=== PATIENT | male | born 1975 | race Caucasian/White ===

== ENCOUNTER 2020-06-19 11:32 | Emergency (ER) | payer MEDICARE, OTHER ==
--- NOTE | 2020-06-19 12:16 | XR ---
EXAMINATION TYPE: XR chest 2V DATE OF EXAM: 06/19/2020 COMPARISON: NONE TECHNIQUE: PA and lateral views submitted. HISTORY: Cough FINDINGS: The lungs are clear and there is no pneumothorax, pleural effusion, or focal pneumonia. Cardiac dev ice seen with coarsened interstitium. IMPRESSION: 1. Correlate for bronchitis, interstitial pneumonitis or early venous congestion.
[2020-06-19] MEDS ORDERED: MORPHINE SULFATE 4 MG/ML SYRINGE IV STA (14:35)
[2020-06-19] MEDS ORDERED: SODIUM CHLORIDE 0.9% 1,000 ML IV STA (14:35)
--- NOTE | 2020-06-19 14:43 | ED ---
General Adult HPI - General Chief complaint: Chest Pain Stated complaint: Chest pain/N&D/Fevers Time Seen by Provider: 06/19/20 14:01 Source: patient, RN notes reviewed Mode of arrival: ambulatory Limitations: no limitations - History of Present Illness Initial comments: Patient is a 44-year-old male that presents to the emergency department complaining of chest pain with cough. He notes that he has been exposed to Covid was tested last month tested negative. He noted that he was having symptoms beginning on 06/13/2020. He notes that he does have a history of hypertrophic cardiomyopathy and diabetes. He states that he's been having on and off fevers, chills, night sweats. He denied taking any [id number] anti-inflammatories at home for symptomatically control. He stated that he was trying I's course but decided come in today due to continual symptoms. He was in no apparent distress or pain while sitting in bed during the exam and interview. He noted that his cough was dry and nonproductive. Stated that he was in 7 out of 10 pain lying in bed. He denied any shortness of breath headache nausea vomiting diarrhea constipation fever fatigue chills. - Related Data Home Medications Medication Instructions Recorded Confirmed ARIPiprazole [Abilify] 15 mg PO DAILY 06/19/20 06/19/20 Apixaban [Eliquis] 5 mg PO BID 06/19/20 06/19/20 INSULIN LISPRO (HumaLOG) [humaLOG] See Protocol SQ AC-TID 06/19/20 06/19/20 Insulin Glargine [Lantus] 30 unit SQ HS 06/19/20 06/19/20 Nitroglycerin Sl Tabs [Nitrostat] 0.4 mg SUBLINGUAL Q5M PRN 06/19/20 06/19/20 metFORMIN HCL 1,000 mg PO BID 06/19/20 06/19/20 Allergies Allergy/AdvReac Type Severity Reaction Status Date / Time No Known Allergies Allergy Verified 06/19/20 16:11 Review of Systems ROS Statement: Those systems with pertinent positive or pertinent negative responses have been documented in the HPI. ROS Other: All systems not noted in ROS Statement are negative. Past Medical History Past Medical History: Diabetes Mellitus Additional Past Medical History / Comment(s): hypertrophic History of Any Multi-Drug Resistant Organisms: None Reported Past Surgical History: Cholecystectomy, Tonsillectomy Additional Past Surgical History / Comment(s): pacemaker defibrillator, Past Psychological History: Bipolar, PTSD Smoking Status: Current every day smoker Past Alcohol Use History: None Reported Past Drug Use History: None Reported General Exam Limitations: no limitations General appearance: alert, in no apparent distress Head exam: Present: atraumatic, normocephalic, normal inspection Eye exam: Present: normal appearance, PERRL, EOMI. Absent: scleral icterus, conjunctival injection, periorbital swelling ENT exam: Present: normal exam, mucous membranes moist Neck exam: Present: normal inspection. Absent: tenderness, meningismus, lymphadenopathy Respiratory exam: Present: normal lung sounds bilaterally. Absent: respiratory distress, wheezes, rales, rhonchi, stridor Cardiovascular Exam: Present: regular rate, normal rhythm, normal heart sounds. Absent: systolic murmur, diastolic murmur, rubs, gallop, clicks GI/Abdominal exam: Present: soft, normal bowel sounds. Absent: distended, tenderness, guarding, rebound, rigid Extremities exam: Present: normal inspection, full ROM, normal capillary refill. Absent: tenderness, pedal edema, joint swelling, calf tenderness Neurological exam: Present: alert, oriented X3, CN II-XII intact Psychiatric exam: Present: normal affect, normal mood Skin exam: Present: warm, dry, intact, normal color. Absent: rash Course Vital Signs 06/19/20 06/19/20 06/19/20 11:43 15:07 17:03 Temperature 98.4 F 98.4 F 98.6 F Pulse Rate 84 81 75 Respiratory 17 18 18 Rate Blood Pressure 135/88 127/84 131/86 O2 Sat by Pulse 97 96 100 Oximetry EKG Findings - EKG Comments: EKG Findings:: Ventricular rate 79 bpm, MA interval 150 ms, QRS duration 90 ms, QT/QTC 392/449 ms, PRT axes 11/69/101. Sinus rhythm with occasional premature ventricular complex, nonspecific T-wave abnormality, abnormal ECG. Medical Decision Making - Medical Decision Making 44-year-old male complaining of a cough that results in chest pain. Labs, 1 L normal saline, chest x-ray, Covid test, 4 mg of morphine, EKG ordered. Line labs unremarkable. Covid test positive. Patient was informed that he does meet criteria for monoclonal antibody therapy it would like to undergo it. Case discussed with Dr. Marks, patient can discharge home after IV infusion. - Lab Data Result diagrams: 06/19/20 15:04 06/19/20 15:04 Lab Results 06/19/20 06/19/20 06/19/20 Range/Units 11:53 15:04 15:04 WBC 4.4 (3.8-10.6) k/uL RBC 4.79 (4.30-5.90) m/uL Hgb 14.1 (13.0-17.5) gm/dL Hct 40.3 (39.0-53.0) % MCV 84.1 (80.0-100.0) fL MCH 29.4 (25.0-35.0) pg MCHC 34.9 (31.0-37.0) g/dL RDW 12.9 (11.5-15.5) % Plt Count 169 (150-450) k/uL MPV 8.3 Neutrophils % 69 % Lymphocytes % 20 % Monocytes % 7 % Eosinophils % 1 % Basophils % 1 % Neutrophils # 3.1 (1.3-7.7) k/uL Lymphocytes # 0.9 L (1.0-4.8) k/uL Monocytes # 0.3 (0-1.0) k/uL Eosinophils # 0.1 (0-0.7) k/uL Basophils # 0.0 (0-0.2) k/uL PT 9.9 (9.0-12.0) sec INR 0.9 (<1.2) APTT 22.9 (22.0-30.0) sec D-Dimer 0.21 (<0.60) mg/L FEU Sodium (137-145) mmol/L Potassium (3.5-5.1) mmol/L Chloride (98-107) mmol/L Carbon Dioxide (22-30) mmol/L Anion Gap mmol/L BUN (9-20) mg/dL Creatinine (0.66-1.25) mg/dL Est GFR (CKD-EPI)AfAm (>60 ml/min/1.73 sqM) Est GFR (CKD-EPI)NonAf (>60 ml/min/1.73 sqM) Glucose (74-99) mg/dL Calcium (8.4-10.2) mg/dL Magnesium (1.6-2.3) mg/dL Total Bilirubin (0.2-1.3) mg/dL AST (17-59) U/L ALT (4-49) U/L Alkaline Phosphatase (38-126) U/L Troponin I (0.000-0.034) ng/mL Total Protein (6.3-8.2) g/dL Albumin (3.5-5.0) g/dL Coronavirus (PCR) Detected A (Not Detectd) 06/19/20 06/19/20 Range/Units 15:04 15:04 WBC (3.8-10.6) k/uL RBC (4.30-5.90) m/uL Hgb (13.0-17.5) gm/dL Hct (39.0-53.0) % MCV (80.0-100.0) fL MCH (25.0-35.0) pg MCHC (31.0-37.0) g/dL RDW (11.5-15.5) % Plt Count (150-450) k/uL MPV Neutrophils % % Lymphocytes % % Monocytes % % Eosinophils % % Basophils % % Neutrophils # (1.3-7.7) k/uL Lymphocytes # (1.0-4.8) k/uL Monocytes # (0-1.0) k/uL Eosinophils # (0-0.7) k/uL Basophils # (0-0.2) k/uL PT (9.0-12.0) sec INR (<1.2) APTT (22.0-30.0) sec D-Dimer (<0.60) mg/L FEU Sodium 136 L (137-145) mmol/L Potassium 5.4 H (3.5-5.1) mmol/L Chloride 101 (98-107) mmol/L Carbon Dioxide 26 (22-30) mmol/L Anion Gap 9 mmol/L BUN 12 (9-20) mg/dL Creatinine 0.79 (0.66-1.25) mg/dL Est GFR (CKD-EPI)AfAm >90 (>60 ml/min/1.73 sqM) Est GFR (CKD-EPI)NonAf >90 (>60 ml/min/1.73 sqM) Glucose 290 H (74-99) mg/dL Calcium 9.2 (8.4-10.2) mg/dL Magnesium 2.2 (1.6-2.3) mg/dL Total Bilirubin 1.2 (0.2-1.3) mg/dL AST 56 (17-59) U/L ALT 48 (4-49) U/L Alkaline Phosphatase 83 (38-126) U/L Troponin I 0.015 (0.000-0.034) ng/mL Total Protein 7.6 (6.3-8.2) g/dL Albumin 4.6 (3.5-5.0) g/dL Coronavirus (PCR) (Not Detectd) - EKG Data -: EKG Interpreted by Me EKG shows normal: sinus rhythm Rate: normal EKG Comments: Ventricular rate 79 bpm, MA interval 150 ms, QRS duration 90 ms, QT/QTC 392/449 ms, PRT axes 11/69/101 Sinus rhythm with occasional premature ventricular complex, nonspecific T-wave abnormality, abnormal ECG - Radiology Data Radiology results: report reviewed, image reviewed Chest x-ray: The lungs are clear and there is no pneumothorax, pleural effusion or focal pneumonia. Cardiac device in with coarsened interstitium. Disposition Clinical Impression: COVID-19 Disposition: HOME SELF-CARE Condition: Stable Instructions (If sedation given, give patient instructions): Coronavirus Disease 2019 (COVID-19) Additional Instructions: Please return to the Emergency Department if symptoms worsen or any other concerns. Quarantine for 10-14 days from symptom onset. Increase oral fluid intake. Take [id number] anti-inflammatories for fever and muscle aches and pains. Follow-up primary care soon as possible. Is patient prescribed a controlled substance at d/c from ED?: No Referrals: None,Stated [Primary Care Provider] - 1-2 days Time of Disposition: 17:59
[2020-06-19 15:09] VITALS: RESP 18
[2020-06-19 15:41] LABS: Basophils % (A) 1 %; Eosinophils # (A) 0.1 k/uL (0-0.7); Eosinophils % (A) 1 %; HCT 40.3 % (39.0-53.0); HGB 14.1 gm/dL (13.0-17.5); Lymphocytes # (A) 0.9 k/uL (1.0-4.8); Lymphocytes % (A) 20 %; MCH 29.4 pg (25.0-35.0); MCHC 34.9 g/dL (31.0-37.0); MCV 84.1 fL (80.0-100.0); Mean Platelet Volume 8.3; Monocytes # (A) 0.3 k/uL (0-1.0); Monocytes % (A) 7 %; Neutrophils # (A) 3.1 k/uL (1.3-7.7); Neutrophils % (A) 69 %; Platelet Count 169 k/uL (150-450); RBC 4.79 m/uL (4.30-5.90); RDW 12.9 % (11.5-15.5); WBC 4.4 k/uL (3.8-10.6)
[2020-06-19 15:47] LABS: ALT 48 U/L (4-49); AST 56 U/L (17-59); African American GFR (CKD) >90 (>60 ml/min/1.73 sqM); Albumin 4.6 g/dL (3.5-5.0); Alkaline Phosphatase 83 U/L (38-126); Anion Gap 9 mmol/L; Blood Urea Nitrogen 12 mg/dL (9-20); Calcium 9.2 mg/dL (8.4-10.2); Carbon Dioxide 26 mmol/L (22-30); Chloride 101 mmol/L (98-107); Glucose 290 mg/dL (74-99); Magnesium 2.2 mg/dL (1.6-2.3); Non-African American GFR(CKD) >90 (>60 ml/min/1.73 sqM); Sodium 136 mmol/L (137-145); Total Bilirubin 1.2 mg/dL (0.2-1.3); Total Protein 7.6 g/dL (6.3-8.2)
[2020-06-19 15:59] LABS: D-Dimer 0.21 mg/L FEU (<0.60); INR 0.9 (<1.2); Partial Thromboplastin Time 22.9 sec (22.0-30.0); Prothrombin Time 9.9 sec (9.0-12.0)
[2020-06-19 16:02] LABS: Potassium 5.4 mmol/L (3.5-5.1)
[2020-06-19] MEDS ORDERED: MORPHINE SULFATE 4 MG/ML SYRINGE IVP STA (17:15)
[2020-06-19] MEDS ORDERED: BAMLANIVIMAB (EUA) 700 MG, ETESEVIMAB (EUA) 1,400 MG in SODIUM CHLORIDE 0.9% 50 ML IVPB ONE (19:15)
[2020-06-19 20:00] VITALS: BP 124/78; PULSE 80; TEMP 98.2
[2020-06-19] MEDS ORDERED: SODIUM CHLORIDE 0.9% 50 ML IVPB ONE (20:00)
== END 2020-06-19 19:45 | disposition home or self-care (01) ==
LOC: EC 11:32
DX: U07.1 COVID-19 (principal); E11.9 Type 2 diabetes mellitus without complications; F31.9 Bipolar disorder, unspecified; F17.200 Nicotine dependence, unspecified, uncomplicated; Z79.4 Long term (current) use of insulin
CPT/HCPCS: 36415; 93005; 85379; 80053; 83735; 84484; 85025; 85610; 85730; 87635; 71046; 99285; 96374; 96376; 96361 ×3; J2270

== ENCOUNTER 2020-06-21 01:09 | Emergency (ER) | payer OTHER, MEDICARE ==
[2020-06-21] MEDS ORDERED: ONDANSETRON 4 MG/2 ML VIAL IVP STA (02:37)
[2020-06-21] MEDS ORDERED: SODIUM CHLORIDE 0.9% 1,000 ML IV ONE ×3 (02:37→04:29)
[2020-06-21] MEDS ORDERED: IBUPROFEN 600 MG TAB PO STA ×2 (02:37→16:42)
[2020-06-21] MEDS ORDERED: Acetaminophen-Codeine 300-30mg TAB PO STA (02:37)
[2020-06-21 03:36] LABS: ALT 34 U/L (4-49); AST 24 U/L (17-59); African American GFR (CKD) >90 (>60 ml/min/1.73 sqM); Albumin 3.7 g/dL (3.5-5.0); Alkaline Phosphatase 89 U/L (38-126); Anion Gap 10 mmol/L; Blood Urea Nitrogen 14 mg/dL (9-20); Calcium 8.5 mg/dL (8.4-10.2); Carbon Dioxide 22 mmol/L (22-30); Chloride 104 mmol/L (98-107); Glucose 380 mg/dL (74-99); Non-African American GFR(CKD) >90 (>60 ml/min/1.73 sqM); Potassium 3.4 mmol/L (3.5-5.1); Sodium 136 mmol/L (137-145); Total Bilirubin 0.7 mg/dL (0.2-1.3); Total Protein 6.3 g/dL (6.3-8.2)
[2020-06-21 03:40] LABS: Basophils % (A) 1 %; Eosinophils % (A) 1 %; HCT 38.8 % (39.0-53.0); HGB 13.3 gm/dL (13.0-17.5); Lymphocytes # (A) 0.8 k/uL (1.0-4.8); Lymphocytes % (A) 14 %; MCHC 34.4 g/dL (31.0-37.0); MCV 84.2 fL (80.0-100.0); Mean Platelet Volume 8.5; Monocytes # (A) 0.4 k/uL (0-1.0); Monocytes % (A) 7 %; Neutrophils # (A) 4.2 k/uL (1.3-7.7); Neutrophils % (A) 76 %; Platelet Count 164 k/uL (150-450); RBC 4.61 m/uL (4.30-5.90); WBC 5.5 k/uL (3.8-10.6)
[2020-06-21] MEDS ORDERED: INSULIN REGULAR 100 UNIT/ML VIAL SQ STA (04:28)
--- NOTE | 2020-06-21 07:11 | ED ---
Psych HPI - General Source: patient Mode of arrival: ambulatory - History of Present Illness MD Complaint: suicidal ideation, feels depressed Onset/Timin -: days(s) Quality: getting worse Improves With: none Worsens With: none Associated Symptoms: other (Fevers, chills, cough) <Asa Cunningham - Last Filed: 06/21/20 07:10> <Nabil Lopez - Last Filed: 06/21/20 11:12> - General Chief Complaint: Psychiatric Symptoms Stated Complaint: Mental health Time Seen by Provider: 06/21/20 01:50 - Related Data Home Medications Medication Instructions Recorded Confirmed ARIPiprazole [Abilify] 15 mg PO DAILY 06/19/20 06/19/20 Apixaban [Eliquis] 5 mg PO BID 06/19/20 06/19/20 INSULIN LISPRO (HumaLOG) [humaLOG] See Protocol SQ AC-TID 06/19/20 06/19/20 Insulin Glargine [Lantus] 30 unit SQ HS 06/19/20 06/19/20 Nitroglycerin Sl Tabs [Nitrostat] 0.4 mg SUBLINGUAL Q5M PRN 06/19/20 06/19/20 metFORMIN HCL 1,000 mg PO BID 06/19/20 06/19/20 Allergies Allergy/AdvReac Type Severity Reaction Status Date / Time No Known Allergies Allergy Verified 06/21/20 01:32 Review of Systems ROS Other: All systems not noted in ROS Statement are negative. Constitutional: Reports: fever, chills ENT: Reports: congestion Respiratory: Reports: cough. Denies: dyspnea, wheezes Cardiovascular: Denies: chest pain, palpitations Gastrointestinal: Denies: abdominal pain, vomiting, diarrhea Genitourinary: Denies: dysuria, hematuria Musculoskeletal: Denies: back pain Skin: Denies: rash Neurological: Reports: headache. Denies: weakness, numbness <Asa Cunningham - Last Filed: 06/21/20 07:10> ROS Other: All systems not noted in ROS Statement are negative. <Nabil Lopez - Last Filed: 06/21/20 11:12> ROS Statement: Those systems with pertinent positive or pertinent negative responses have been documented in the HPI. Past Medical History Past Medical History: Diabetes Mellitus Additional Past Medical History / Comment(s): hypertrophic History of Any Multi-Drug Resistant Organisms: None Reported Past Surgical History: Cholecystectomy, Tonsillectomy Additional Past Surgical History / Comment(s): pacemaker defibrillator, Past Psychological History: Bipolar, PTSD Smoking Status: Current every day smoker Past Alcohol Use History: None Reported Past Drug Use History: None Reported <Asa Cunningham - Last Filed: 06/21/20 07:10> General Exam Limitations: no limitations General appearance: alert, in no apparent distress Head exam: Present: atraumatic, normocephalic Eye exam: Present: normal appearance. Absent: scleral icterus, conjunctival injection ENT exam: Present: mucous membranes dry Neck exam: Present: normal inspection, full ROM. Absent: meningismus Respiratory exam: Present: normal lung sounds bilaterally. Absent: respiratory distress, wheezes, rales, rhonchi, stridor Cardiovascular Exam: Present: regular rate, normal rhythm, normal heart sounds. Absent: systolic murmur, diastolic murmur, rubs, gallop GI/Abdominal exam: Present: soft. Absent: distended, tenderness, guarding, rebound Extremities exam: Present: normal inspection, normal capillary refill. Absent: pedal edema, calf tenderness Back exam: Present: normal inspection Neurological exam: Present: alert Skin exam: Present: warm, dry, intact, normal color. Absent: rash <Asa Cunningham - Last Filed: 06/21/20 07:10> Course Vital Signs 06/21/20 06/21/20 06/21/20 01:26 03:00 05:30 Temperature 99 F 99.0 F Pulse Rate 104 H 83 Respiratory 18 18 18 Rate Blood Pressure 125/70 117/53 O2 Sat by Pulse 96 94 L Oximetry Medical Decision Making - Lab Data Result diagrams: 06/21/20 03:00 06/21/20 03:00 <Asa Cunningham - Last Filed: 06/21/20 07:10> - Lab Data Result diagrams: 06/21/20 03:00 06/21/20 03:00 <Nabil Lopez - Last Filed: 06/21/20 11:12> - Lab Data Lab Results 06/21/20 06/21/20 Range/Units 03:00 03:00 WBC 5.5 (3.8-10.6) k/uL RBC 4.61 (4.30-5.90) m/uL Hgb 13.3 (13.0-17.5) gm/dL Hct 38.8 L (39.0-53.0) % MCV 84.2 (80.0-100.0) fL MCH 29.0 (25.0-35.0) pg MCHC 34.4 (31.0-37.0) g/dL RDW 13.0 (11.5-15.5) % Plt Count 164 (150-450) k/uL MPV 8.5 Neutrophils % 76 % Lymphocytes % 14 % Monocytes % 7 % Eosinophils % 1 % Basophils % 1 % Neutrophils # 4.2 (1.3-7.7) k/uL Lymphocytes # 0.8 L (1.0-4.8) k/uL Monocytes # 0.4 (0-1.0) k/uL Eosinophils # 0.0 (0-0.7) k/uL Basophils # 0.0 (0-0.2) k/uL Sodium 136 L (137-145) mmol/L Potassium 3.4 L (3.5-5.1) mmol/L Chloride 104 (98-107) mmol/L Carbon Dioxide 22 (22-30) mmol/L Anion Gap 10 mmol/L BUN 14 (9-20) mg/dL Creatinine 0.81 (0.66-1.25) mg/dL Est GFR (CKD-EPI)AfAm >90 (>60 ml/min/1.73 sqM) Est GFR (CKD-EPI)NonAf >90 (>60 ml/min/1.73 sqM) Glucose 380 H (74-99) mg/dL Calcium 8.5 (8.4-10.2) mg/dL Total Bilirubin 0.7 (0.2-1.3) mg/dL AST 24 (17-59) U/L ALT 34 (4-49) U/L Alkaline Phosphatase 89 (38-126) U/L Total Protein 6.3 (6.3-8.2) g/dL Albumin 3.7 (3.5-5.0) g/dL Disposition <Asa Cunningham - Last Filed: 06/21/20 07:10> Time of Disposition: 11:12 <Nabil Lopez - Last Filed: 06/21/20 11:12> Clinical Impression: Depression, Suicidal ideation Disposition: TRANSFER TO PSYCH HOSP/UNIT Referrals: None,Stated [Primary Care Provider] - 1-2 days
[2020-06-21] MEDS ORDERED: ACETAMINOPHEN TAB 500 MG TAB PO STA (09:16)
[2020-06-21] MEDS ORDERED: ALBUTEROL HFA INHALER INHALATION STA (09:25)
[2020-06-21] MEDS: INSULIN ASPART (NovoLOG) 100 UNIT/ML VIAL SQ SCH ×4 (12:12→22:16)
[2020-06-21 12:22] LABS: Glucose,Whole Blood 224 mg/dL (75-99)
[2020-06-21 12:42] LABS: Appearance,Urine Clear (Clear); Bilirubin,Urine Negative (Negative); Blood,Urine Negative (Negative); Color,Urine Yellow; Glucose,Urine (UA) 4+ (Negative); Ketones,Urine Trace (Negative); Leukocyte Esterase,Urine Negative (Negative); Nitrite,Urine Negative (Negative); PH, Urine 5.5 (5.0-8.0); Protein,Urine Trace (Negative); Specific Gravity,Urine 1.043 (1.001-1.035); Urobilinogen,Urine <2.0 mg/dL (<2.0)
[2020-06-21 13:10] LABS: Amphetamine Screen,Urine Not Detected (NotDetected); Barbiturate Screen,Urine Not Detected (NotDetected); Benzodiazepines Screen,Urine Detected (NotDetected); Cocaine Screen,Urine Not Detected (NotDetected); Methadone Screen, Urine Not Detected (NotDetected); Opiate Screen,Urine Detected (NotDetected); Oxycodone Screen, Urine Not Detected (NotDetected); Phencyclidine Screen,Urine Not Detected (NotDetected); Tricyclic Antidepressant,Urine Not Detected (NotDetected); Urn Cannabinoid Scrn Not Detected (NotDetected)
[2020-06-21 17:36] LABS: Glucose,Whole Blood 162 mg/dL (75-99)
[2020-06-21 22:09] LABS: Glucose,Whole Blood 258 mg/dL (75-99)
[2020-06-22] MEDS ORDERED: IBUPROFEN 600 MG TAB PO STA (03:19)
[2020-06-22] MEDS ORDERED: LORazepam 1 MG TAB PO STA (03:35)
[2020-06-22 10:39] LABS: Glucose,Whole Blood 223 mg/dL (75-99)
[2020-06-22] MEDS: INSULIN ASPART (NovoLOG) 100 UNIT/ML VIAL SQ SCH ×4 (11:17→23:29)
[2020-06-22] MEDS ORDERED: ACETAMINOPHEN TAB 500 MG TAB PO STA (11:34)
[2020-06-22] MEDS ORDERED: KETOROLAC 15 MG/ML 1 ML VIAL IVP STA (16:56)
[2020-06-22 17:06] LABS: Glucose,Whole Blood 201 mg/dL (75-99)
[2020-06-22 23:24] LABS: Glucose,Whole Blood 306 mg/dL (75-99)
[2020-06-22] MEDS: ACETAMINOPHEN TAB 500 MG TAB PO PRN (23:27)
[2020-06-23 07:26] LABS: Glucose,Whole Blood 200 mg/dL (75-99)
[2020-06-23] MEDS: INSULIN ASPART (NovoLOG) 100 UNIT/ML VIAL SQ SCH ×4 (07:39→21:18)
[2020-06-23] MEDS: ACETAMINOPHEN TAB 500 MG TAB PO PRN ×3 (07:39→22:57)
[2020-06-23] MEDS ORDERED: ALPRAZolam 1 MG TAB PO STA (14:05)
[2020-06-23 14:23] LABS: Glucose,Whole Blood 304 mg/dL (75-99)
[2020-06-23 17:40] LABS: Glucose,Whole Blood 267 mg/dL (75-99)
[2020-06-23 21:20] LABS: Glucose,Whole Blood 258 mg/dL (75-99)
[2020-06-24 07:52] LABS: Glucose,Whole Blood 301 mg/dL (75-99)
[2020-06-24] MEDS: INSULIN ASPART (NovoLOG) 100 UNIT/ML VIAL SQ SCH ×5 (08:18→21:21)
[2020-06-24] MEDS ORDERED: ARIPiprazole 15 MG TAB PO SCH (09:00)
[2020-06-24] MEDS: APIXABAN 5 MG TAB PO SCH ×2 (09:05→21:21)
[2020-06-24 12:16] LABS: Glucose,Whole Blood 253 mg/dL (75-99)
[2020-06-24] MEDS ORDERED: ACETAMINOPHEN TAB 500 MG TAB PO PRN (14:21)
[2020-06-24 17:17] LABS: Glucose,Whole Blood 308 mg/dL (75-99)
[2020-06-24] MEDS ORDERED: LORazepam 1 MG TAB PO STA (19:01)
[2020-06-24 21:05] LABS: Glucose,Whole Blood 360 mg/dL (75-99)
[2020-06-24] MEDS: ARIPiprazole 15 MG TAB PO SCH (21:20)
[2020-06-24] MEDS: INSULIN DETEMIR (LEVEMIR) 100 UNIT/ML SYR SQ SCH (21:21)
[2020-06-25 09:46] LABS: Glucose,Whole Blood 284 mg/dL (75-99)
[2020-06-25] MEDS: APIXABAN 5 MG TAB PO SCH ×2 (09:51→21:15)
[2020-06-25] MEDS: INSULIN ASPART (NovoLOG) 100 UNIT/ML VIAL SQ SCH ×4 (09:51→21:14)
[2020-06-25 14:21] LABS: Glucose,Whole Blood 276 mg/dL (75-99)
--- NOTE | 2020-06-25 15:07 | ED ---
Medical Decision Making - Medical Decision Making The patient did complain of left-sided chest pressure [id number] in severity status intermittently for a long time. 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 No shortness breath no fevers chills nausea vomiting sweats or other symptoms reported at this time. The patient's workup for chest pain was negative thus far. He is still Covid positive, patient is pending transfer. Patient's case will be endorsed to Dr. Phelps at shift change - Lab Data Result diagrams: 06/25/20 14:53 06/25/20 14:53 Lab Results 06/21/20 06/21/20 06/21/20 Range/Units 03:00 03:00 12:11 WBC 5.5 (3.8-10.6) k/uL RBC 4.61 (4.30-5.90) m/uL Hgb 13.3 (13.0-17.5) gm/dL Hct 38.8 L (39.0-53.0) % MCV 84.2 (80.0-100.0) fL MCH 29.0 (25.0-35.0) pg MCHC 34.4 (31.0-37.0) g/dL RDW 13.0 (11.5-15.5) % Plt Count 164 (150-450) k/uL MPV 8.5 Neutrophils % 76 % Neutrophils % (Manual) % Lymphocytes % 14 % Lymphocytes % (Manual) % Monocytes % 7 % Monocytes % (Manual) % Eosinophils % 1 % Basophils % 1 % Neutrophils # 4.2 (1.3-7.7) k/uL Neutrophils # (Manual) (1.3-7.7) k/uL Lymphocytes # 0.8 L (1.0-4.8) k/uL Lymphocytes # (Manual) (1.0-4.8) k/uL Monocytes # 0.4 (0-1.0) k/uL Monocytes # (Manual) (0-1.0) k/uL Eosinophils # 0.0 (0-0.7) k/uL Basophils # 0.0 (0-0.2) k/uL Nucleated RBCs (0-0) /100 WBC Polychromasia Sodium 136 L (137-145) mmol/L Potassium 3.4 L (3.5-5.1) mmol/L Chloride 104 (98-107) mmol/L Carbon Dioxide 22 (22-30) mmol/L Anion Gap 10 mmol/L BUN 14 (9-20) mg/dL Creatinine 0.81 (0.66-1.25) mg/dL Est GFR (CKD-EPI)AfAm >90 (>60 ml/min/1.73 sqM) Est GFR (CKD-EPI)NonAf >90 (>60 ml/min/1.73 sqM) Glucose 380 H (74-99) mg/dL POC Glucose (mg/dL) 224 H (75-99) mg/dL POC Glu [facility] Specialist ID Rohan Ureña Calcium 8.5 (8.4-10.2) mg/dL Magnesium (1.6-2.3) mg/dL Total Bilirubin 0.7 (0.2-1.3) mg/dL AST 24 (17-59) U/L ALT 34 (4-49) U/L Alkaline Phosphatase 89 (38-126) U/L Creatine Kinase (55-170) U/L Troponin I (0.000-0.034) ng/mL Total Protein 6.3 (6.3-8.2) g/dL Albumin 3.7 (3.5-5.0) g/dL Urine Color Urine Appearance (Clear) Urine pH (5.0-8.0) Ur Specific [place] (1.001-1.035) Urine Protein (Negative) Urine Glucose (UA) (Negative) Urine Ketones (Negative) Urine Blood (Negative) Urine Nitrite (Negative) Urine Bilirubin (Negative) Urine Urobilinogen (<2.0) mg/dL Ur Leukocyte Esterase (Negative) Urine Opiates Screen (NotDetected) Ur Oxycodone Screen (NotDetected) Urine Methadone Screen (NotDetected) Ur Propoxyphene Screen (NotDetected) Ur Barbiturates Screen (NotDetected) U Tricyclic Antidepress (NotDetected) Ur Phencyclidine Scrn (NotDetected) Ur Amphetamines Screen (NotDetected) U Methamphetamines Scrn (NotDetected) U Benzodiazepines Scrn (NotDetected) Urine Cocaine Screen (NotDetected) U Marijuana (THC) Screen (NotDetected) Coronavirus (PCR) (Not Detectd) 06/21/20 06/21/20 06/21/20 Range/Units 12:25 12:25 17:13 WBC (3.8-10.6) k/uL RBC (4.30-5.90) m/uL Hgb (13.0-17.5) gm/dL Hct (39.0-53.0) % MCV (80.0-100.0) fL MCH (25.0-35.0) pg MCHC (31.0-37.0) g/dL RDW (11.5-15.5) % Plt Count (150-450) k/uL MPV Neutrophils % % Neutrophils % (Manual) % Lymphocytes % % Lymphocytes % (Manual) % Monocytes % % Monocytes % (Manual) % Eosinophils % % Basophils % % Neutrophils # (1.3-7.7) k/uL Neutrophils # (Manual) (1.3-7.7) k/uL Lymphocytes # (1.0-4.8) k/uL Lymphocytes # (Manual) (1.0-4.8) k/uL Monocytes # (0-1.0) k/uL Monocytes # (Manual) (0-1.0) k/uL Eosinophils # (0-0.7) k/uL Basophils # (0-0.2) k/uL Nucleated RBCs (0-0) /100 WBC Polychromasia Sodium (137-145) mmol/L Potassium (3.5-5.1) mmol/L Chloride (98-107) mmol/L Carbon Dioxide (22-30) mmol/L Anion Gap mmol/L BUN (9-20) mg/dL Creatinine (0.66-1.25) mg/dL Est GFR (CKD-EPI)AfAm (>60 ml/min/1.73 sqM) Est GFR (CKD-EPI)NonAf (>60 ml/min/1.73 sqM) Glucose (74-99) mg/dL POC Glucose (mg/dL) 162 H (75-99) mg/dL POC Glu [facility] N[facility] And Throat Specialist ID Mesha Gonzales Calcium (8.4-10.2) mg/dL Magnesium (1.6-2.3) mg/dL Total Bilirubin (0.2-1.3) mg/dL AST (17-59) U/L ALT (4-49) U/L Alkaline Phosphatase (38-126) U/L Creatine Kinase (55-170) U/L Troponin I (0.000-0.034) ng/mL Total Protein (6.3-8.2) g/dL Albumin (3.5-5.0) g/dL Urine Color Yellow Urine Appearance Clear (Clear) Urine pH 5.5 (5.0-8.0) Ur Specific [place] 1.043 H (1.001-1.035) Urine Protein Trace H (Negative) Urine Glucose (UA) 4+ H (Negative) Urine Ketones Trace H (Negative) Urine Blood Negative (Negative) Urine Nitrite Negative (Negative) Urine Bilirubin Negative (Negative) Urine Urobilinogen <2.0 (<2.0) mg/dL Ur Leukocyte Esterase Negative (Negative) Urine Opiates Screen Detected H (NotDetected) Ur Oxycodone Screen Not Detected (NotDetected) Urine Methadone Screen Not Detected (NotDetected) Ur Propoxyphene Screen Not Detected (NotDetected) Ur Barbiturates Screen Not Detected (NotDetected) U Tricyclic Antidepress Not Detected (NotDetected) Ur Phencyclidine Scrn Not Detected (NotDetected) Ur Amphetamines Screen Not Detected (NotDetected) U Methamphetamines Scrn Not Detected (NotDetected) U Benzodiazepines Scrn Detected H (NotDetected) Urine Cocaine Screen Not Detected (NotDetected) U Marijuana (THC) Screen Not Detected (NotDetected) Coronavirus (PCR) (Not Detectd) 06/21/20 06/22/20 06/22/20 Range/Units 22:08 10:35 17:05 WBC (3.8-10.6) k/uL RBC (4.30-5.90) m/uL Hgb (13.0-17.5) gm/dL Hct (39.0-53.0) % MCV (80.0-100.0) fL MCH (25.0-35.0) pg MCHC (31.0-37.0) g/dL RDW (11.5-15.5) % Plt Count (150-450) k/uL MPV Neutrophils % % Neutrophils % (Manual) % Lymphocytes % % Lymphocytes % (Manual) % Monocytes % % Monocytes % (Manual) % Eosinophils % % Basophils % % Neutrophils # (1.3-7.7) k/uL Neutrophils # (Manual) (1.3-7.7) k/uL Lymphocytes # (1.0-4.8) k/uL Lymphocytes # (Manual) (1.0-4.8) k/uL Monocytes # (0-1.0) k/uL Monocytes # (Manual) (0-1.0) k/uL Eosinophils # (0-0.7) k/uL Basophils # (0-0.2) k/uL Nucleated RBCs (0-0) /100 WBC Polychromasia Sodium (137-145) mmol/L Potassium (3.5-5.1) mmol/L Chloride (98-107) mmol/L Carbon Dioxide (22-30) mmol/L Anion Gap mmol/L BUN (9-20) mg/dL Creatinine (0.66-1.25) mg/dL Est GFR (CKD-EPI)AfAm (>60 ml/min/1.73 sqM) Est GFR (CKD-EPI)NonAf (>60 ml/min/1.73 sqM) Glucose (74-99) mg/dL POC Glucose (mg/dL) 258 H 223 H 201 H (75-99) mg/dL POC Glu [facility] N[facility] Throat Specialist Louann Abrams, Harper Villa Calcium (8.4-10.2) mg/dL Magnesium (1.6-2.3) mg/dL Total Bilirubin (0.2-1.3) mg/dL AST (17-59) U/L ALT (4-49) U/L Alkaline Phosphatase (38-126) U/L Creatine Kinase (55-170) U/L Troponin I (0.000-0.034) ng/mL Total Protein (6.3-8.2) g/dL Albumin (3.5-5.0) g/dL Urine Color Urine Appearance (Clear) Urine pH (5.0-8.0) Ur Specific [place] (1.001-1.035) Urine Protein (Negative) Urine Glucose (UA) (Negative) Urine Ketones (Negative) Urine Blood (Negative) Urine Nitrite (Negative) Urine Bilirubin (Negative) Urine Urobilinogen (<2.0) mg/dL Ur Leukocyte Esterase (Negative) Urine Opiates Screen (NotDetected) Ur Oxycodone Screen (NotDetected) Urine Methadone Screen (NotDetected) Ur Propoxyphene Screen (NotDetected) Ur Barbiturates Screen (NotDetected) U Tricyclic Antidepress (NotDetected) Ur Phencyclidine Scrn (NotDetected) Ur Amphetamines Screen (NotDetected) U Methamphetamines Scrn (NotDetected) U Benzodiazepines Scrn (NotDetected) Urine Cocaine Screen (NotDetected) U Marijuana (THC) Screen (NotDetected) Coronavirus (PCR) (Not Detectd) 06/22/20 06/23/20 06/23/20 Range/Units 23:22 07:24 14:10 WBC (3.8-10.6) k/uL RBC (4.30-5.90) m/uL Hgb (13.0-17.5) gm/dL Hct (39.0-53.0) % MCV (80.0-100.0) fL MCH (25.0-35.0) pg MCHC (31.0-37.0) g/dL RDW (11.5-15.5) % Plt Count (150-450) k/uL MPV Neutrophils % % Neutrophils % (Manual) % Lymphocytes % % Lymphocytes % (Manual) % Monocytes % % Monocytes % (Manual) % Eosinophils % % Basophils % % Neutrophils # (1.3-7.7) k/uL Neutrophils # (Manual) (1.3-7.7) k/uL Lymphocytes # (1.0-4.8) k/uL Lymphocytes # (Manual) (1.0-4.8) k/uL Monocytes # (0-1.0) k/uL Monocytes # (Manual) (0-1.0) k/uL Eosinophils # (0-0.7) k/uL Basophils # (0-0.2) k/uL Nucleated RBCs (0-0) /100 WBC Polychromasia Sodium (137-145) mmol/L Potassium (3.5-5.1) mmol/L Chloride (98-107) mmol/L Carbon Dioxide (22-30) mmol/L Anion Gap mmol/L BUN (9-20) mg/dL Creatinine (0.66-1.25) mg/dL Est GFR (CKD-EPI)AfAm (>60 ml/min/1.73 sqM) Est GFR (CKD-EPI)NonAf (>60 ml/min/1.73 sqM) Glucose (74-99) mg/dL POC Glucose (mg/dL) 306 H 200 H 304 H (75-99) mg/dL POC Glu [facility] N[facility] And Throat Specialist ID Kat, Harper Howard, Modesta Sharma, Yeimi Calcium (8.4-10.2) mg/dL Magnesium (1.6-2.3) mg/dL Total Bilirubin (0.2-1.3) mg/dL AST (17-59) U/L ALT (4-49) U/L Alkaline Phosphatase (38-126) U/L Creatine Kinase (55-170) U/L Troponin I (0.000-0.034) ng/mL Total Protein (6.3-8.2) g/dL Albumin (3.5-5.0) g/dL Urine Color Urine Appearance (Clear) Urine pH (5.0-8.0) Ur Specific [place] (1.001-1.035) Urine Protein (Negative) Urine Glucose (UA) (Negative) Urine Ketones (Negative) Urine Blood (Negative) Urine Nitrite (Negative) Urine Bilirubin (Negative) Urine Urobilinogen (<2.0) mg/dL Ur Leukocyte Esterase (Negative) Urine Opiates Screen (NotDetected) Ur Oxycodone Screen (NotDetected) Urine Methadone Screen (NotDetected) Ur Propoxyphene Screen (NotDetected) Ur Barbiturates Screen (NotDetected) U Tricyclic Antidepress (NotDetected) Ur Phencyclidine Scrn (NotDetected) Ur Amphetamines Screen (NotDetected) U Methamphetamines Scrn (NotDetected) U Benzodiazepines Scrn (NotDetected) Urine Cocaine Screen (NotDetected) U Marijuana (THC) Screen (NotDetected) Coronavirus (PCR) (Not Detectd) 06/23/20 06/23/20 06/24/20 Range/Units 17:38 21:08 07:51 WBC (3.8-10.6) k/uL RBC (4.30-5.90) m/uL Hgb (13.0-17.5) gm/dL Hct (39.0-53.0) % MCV (80.0-100.0) fL MCH (25.0-35.0) pg MCHC (31.0-37.0) g/dL RDW (11.5-15.5) % Plt Count (150-450) k/uL MPV Neutrophils % % Neutrophils % (Manual) % Lymphocytes % % Lymphocytes % (Manual) % Monocytes % % Monocytes % (Manual) % Eosinophils % % Basophils % % Neutrophils # (1.3-7.7) k/uL Neutrophils # (Manual) (1.3-7.7) k/uL Lymphocytes # (1.0-4.8) k/uL Lymphocytes # (Manual) (1.0-4.8) k/uL Monocytes # (0-1.0) k/uL Monocytes # (Manual) (0-1.0) k/uL Eosinophils # (0-0.7) k/uL Basophils # (0-0.2) k/uL Nucleated RBCs (0-0) /100 WBC Polychromasia Sodium (137-145) mmol/L Potassium (3.5-5.1) mmol/L Chloride (98-107) mmol/L Carbon Dioxide (22-30) mmol/L Anion Gap mmol/L BUN (9-20) mg/dL Creatinine (0.66-1.25) mg/dL Est GFR (CKD-EPI)AfAm (>60 ml/min/1.73 sqM) Est GFR (CKD-EPI)NonAf (>60 ml/min/1.73 sqM) Glucose (74-99) mg/dL POC Glucose (mg/dL) 267 H 258 H 301 H (75-99) mg/dL POC Glu [facility] N[facility] And Throat Specialist ID Yeimi Sharma McKenna Powers, Lauren Calcium (8.4-10.2) mg/dL Magnesium (1.6-2.3) mg/dL Total Bilirubin (0.2-1.3) mg/dL AST (17-59) U/L ALT (4-49) U/L Alkaline Phosphatase (38-126) U/L Creatine Kinase (55-170) U/L Troponin I (0.000-0.034) ng/mL Total Protein (6.3-8.2) g/dL Albumin (3.5-5.0) g/dL Urine Color Urine Appearance (Clear) Urine pH (5.0-8.0) Ur Specific [place] (1.001-1.035) Urine Protein (Negative) Urine Glucose (UA) (Negative) Urine Ketones (Negative) Urine Blood (Negative) Urine Nitrite (Negative) Urine Bilirubin (Negative) Urine Urobilinogen (<2.0) mg/dL Ur Leukocyte Esterase (Negative) Urine Opiates Screen (NotDetected) Ur Oxycodone Screen (NotDetected) Urine Methadone Screen (NotDetected) Ur Propoxyphene Screen (NotDetected) Ur Barbiturates Screen (NotDetected) U Tricyclic Antidepress (NotDetected) Ur Phencyclidine Scrn (NotDetected) Ur Amphetamines Screen (NotDetected) U Methamphetamines Scrn (NotDetected) U Benzodiazepines Scrn (NotDetected) Urine Cocaine Screen (NotDetected) U Marijuana (THC) Screen (NotDetected) Coronavirus (PCR) (Not Detectd) 06/24/20 06/24/20 06/24/20 Range/Units 12:12 17:15 21:02 WBC (3.8-10.6) k/uL RBC (4.30-5.90) m/uL Hgb (13.0-17.5) gm/dL Hct (39.0-53.0) % MCV (80.0-100.0) fL MCH (25.0-35.0) pg MCHC (31.0-37.0) g/dL RDW (11.5-15.5) % Plt Count (150-450) k/uL MPV Neutrophils % % Neutrophils % (Manual) % Lymphocytes % % Lymphocytes % (Manual) % Monocytes % % Monocytes % (Manual) % Eosinophils % % Basophils % % Neutrophils # (1.3-7.7) k/uL Neutrophils # (Manual) (1.3-7.7) k/uL Lymphocytes # (1.0-4.8) k/uL Lymphocytes # (Manual) (1.0-4.8) k/uL Monocytes # (0-1.0) k/uL Monocytes # (Manual) (0-1.0) k/uL Eosinophils # (0-0.7) k/uL Basophils # (0-0.2) k/uL Nucleated RBCs (0-0) /100 WBC Polychromasia Sodium (137-145) mmol/L Potassium (3.5-5.1) mmol/L Chloride (98-107) mmol/L Carbon Dioxide (22-30) mmol/L Anion Gap mmol/L BUN (9-20) mg/dL Creatinine (0.66-1.25) mg/dL Est GFR (CKD-EPI)AfAm (>60 ml/min/1.73 sqM) Est GFR (CKD-EPI)NonAf (>60 ml/min/1.73 sqM) Glucose (74-99) mg/dL POC Glucose (mg/dL) 253 H 308 H 360 H (75-99) mg/dL POC Glu [facility] N[facility] Throat Specialist Ana Stokes Ashley Smith, Ashley Calcium (8.4-10.2) mg/dL Magnesium (1.6-2.3) mg/dL Total Bilirubin (0.2-1.3) mg/dL AST (17-59) U/L ALT (4-49) U/L Alkaline Phosphatase (38-126) U/L Creatine Kinase (55-170) U/L Troponin I (0.000-0.034) ng/mL Total Protein (6.3-8.2) g/dL Albumin (3.5-5.0) g/dL Urine Color Urine Appearance (Clear) Urine pH (5.0-8.0) Ur Specific [place] (1.001-1.035) Urine Protein (Negative) Urine Glucose (UA) (Negative) Urine Ketones (Negative) Urine Blood (Negative) Urine Nitrite (Negative) Urine Bilirubin (Negative) Urine Urobilinogen (<2.0) mg/dL Ur Leukocyte Esterase (Negative) Urine Opiates Screen (NotDetected) Ur Oxycodone Screen (NotDetected) Urine Methadone Screen (NotDetected) Ur Propoxyphene Screen (NotDetected) Ur Barbiturates Screen (NotDetected) U Tricyclic Antidepress (NotDetected) Ur Phencyclidine Scrn (NotDetected) Ur Amphetamines Screen (NotDetected) U Methamphetamines Scrn (NotDetected) U Benzodiazepines Scrn (NotDetected) Urine Cocaine Screen (NotDetected) U Marijuana (THC) Screen (NotDetected) Coronavirus (PCR) (Not Detectd) 06/25/20 06/25/20 06/25/20 Range/Units 09:45 14:19 14:53 WBC 5.2 (3.8-10.6) k/uL RBC 5.31 (4.30-5.90) m/uL Hgb 14.7 (13.0-17.5) gm/dL Hct 44.9 (39.0-53.0) % MCV 84.5 (80.0-100.0) fL MCH 27.6 (25.0-35.0) pg MCHC 32.7 (31.0-37.0) g/dL RDW 13.3 (11.5-15.5) % Plt Count 310 (150-450) k/uL MPV 8.4 Neutrophils % % Neutrophils % (Manual) 74 % Lymphocytes % % Lymphocytes % (Manual) 23 % Monocytes % % Monocytes % (Manual) 3 % Eosinophils % % Basophils % % Neutrophils # (1.3-7.7) k/uL Neutrophils # (Manual) 3.85 (1.3-7.7) k/uL Lymphocytes # (1.0-4.8) k/uL Lymphocytes # (Manual) 1.20 (1.0-4.8) k/uL Monocytes # (0-1.0) k/uL Monocytes # (Manual) 0.16 (0-1.0) k/uL Eosinophils # (0-0.7) k/uL Basophils # (0-0.2) k/uL Nucleated RBCs 0 (0-0) /100 WBC Polychromasia Present Sodium (137-145) mmol/L Potassium (3.5-5.1) mmol/L Chloride (98-107) mmol/L Carbon Dioxide (22-30) mmol/L Anion Gap mmol/L BUN (9-20) mg/dL Creatinine (0.66-1.25) mg/dL Est GFR (CKD-EPI)AfAm (>60 ml/min/1.73 sqM) Est GFR (CKD-EPI)NonAf (>60 ml/min/1.73 sqM) Glucose (74-99) mg/dL POC Glucose (mg/dL) 284 H 276 H (75-99) mg/dL POC Glu [facility] N[facility] Throat Specialist Bibiana King, Bibiana Calcium (8.4-10.2) mg/dL Magnesium (1.6-2.3) mg/dL Total Bilirubin (0.2-1.3) mg/dL AST (17-59) U/L ALT (4-49) U/L Alkaline Phosphatase (38-126) U/L Creatine Kinase (55-170) U/L Troponin I (0.000-0.034) ng/mL Total Protein (6.3-8.2) g/dL Albumin (3.5-5.0) g/dL Urine Color Urine Appearance (Clear) Urine pH (5.0-8.0) Ur Specific [place] (1.001-1.035) Urine Protein (Negative) Urine Glucose (UA) (Negative) Urine Ketones (Negative) Urine Blood (Negative) Urine Nitrite (Negative) Urine Bilirubin (Negative) Urine Urobilinogen (<2.0) mg/dL Ur Leukocyte Esterase (Negative) Urine Opiates Screen (NotDetected) Ur Oxycodone Screen (NotDetected) Urine Methadone Screen (NotDetected) Ur Propoxyphene Screen (NotDetected) Ur Barbiturates Screen (NotDetected) U Tricyclic Antidepress (NotDetected) Ur Phencyclidine Scrn (NotDetected) Ur Amphetamines Screen (NotDetected) U Methamphetamines Scrn (NotDetected) U Benzodiazepines Scrn (NotDetected) Urine Cocaine Screen (NotDetected) U Marijuana (THC) Screen (NotDetected) Coronavirus (PCR) (Not Detectd) 06/25/20 06/25/20 06/25/20 Range/Units 14:53 14:53 15:30 WBC (3.8-10.6) k/uL RBC (4.30-5.90) m/uL Hgb (13.0-17.5) gm/dL Hct (39.0-53.0) % MCV (80.0-100.0) fL MCH (25.0-35.0) pg MCHC (31.0-37.0) g/dL RDW (11.5-15.5) % Plt Count (150-450) k/uL MPV Neutrophils % % Neutrophils % (Manual) % Lymphocytes % % Lymphocytes % (Manual) % Monocytes % % Monocytes % (Manual) % Eosinophils % % Basophils % % Neutrophils # (1.3-7.7) k/uL Neutrophils # (Manual) (1.3-7.7) k/uL Lymphocytes # (1.0-4.8) k/uL Lymphocytes # (Manual) (1.0-4.8) k/uL Monocytes # (0-1.0) k/uL Monocytes # (Manual) (0-1.0) k/uL Eosinophils # (0-0.7) k/uL Basophils # (0-0.2) k/uL Nucleated RBCs (0-0) /100 WBC Polychromasia Sodium 135 L (137-145) mmol/L Potassium 4.4 (3.5-5.1) mmol/L Chloride 100 (98-107) mmol/L Carbon Dioxide 27 (22-30) mmol/L Anion Gap 8 mmol/L BUN 15 (9-20) mg/dL Creatinine 0.79 (0.66-1.25) mg/dL Est GFR (CKD-EPI)AfAm >90 (>60 ml/min/1.73 sqM) Est GFR (CKD-EPI)NonAf >90 (>60 ml/min/1.73 sqM) Glucose 296 H (74-99) mg/dL POC Glucose (mg/dL) (75-99) mg/dL POC Glu [facility] N[facility] Throat Specialist ID Calcium 9.5 (8.4-10.2) mg/dL Magnesium 2.0 (1.6-2.3) mg/dL Total Bilirubin 0.6 (0.2-1.3) mg/dL AST 27 (17-59) U/L ALT 28 (4-49) U/L Alkaline Phosphatase 76 (38-126) U/L Creatine Kinase 26 L (55-170) U/L Troponin I <0.012 (0.000-0.034) ng/mL Total Protein 6.8 (6.3-8.2) g/dL Albumin 3.9 (3.5-5.0) g/dL Urine Color Urine Appearance (Clear) Urine pH (5.0-8.0) Ur Specific [place] (1.001-1.035) Urine Protein (Negative) Urine Glucose (UA) (Negative) Urine Ketones (Negative) Urine Blood (Negative) Urine Nitrite (Negative) Urine Bilirubin (Negative) Urine Urobilinogen (<2.0) mg/dL Ur Leukocyte Esterase (Negative) Urine Opiates Screen (NotDetected) Ur Oxycodone Screen (NotDetected) Urine Methadone Screen (NotDetected) Ur Propoxyphene Screen (NotDetected) Ur Barbiturates Screen (NotDetected) U Tricyclic Antidepress (NotDetected) Ur Phencyclidine Scrn (NotDetected) Ur Amphetamines Screen (NotDetected) U Methamphetamines Scrn (NotDetected) U Benzodiazepines Scrn (NotDetected) Urine Cocaine Screen (NotDetected) U Marijuana (THC) Screen (NotDetected) Coronavirus (PCR) Detected A (Not Detectd) 06/25/20 Range/Units 16:24 WBC (3.8-10.6) k/uL RBC (4.30-5.90) m/uL Hgb (13.0-17.5) gm/dL Hct (39.0-53.0) % MCV (80.0-100.0) fL MCH (25.0-35.0) pg MCHC (31.0-37.0) g/dL RDW (11.5-15.5) % Plt Count (150-450) k/uL MPV Neutrophils % % Neutrophils % (Manual) % Lymphocytes % % Lymphocytes % (Manual) % Monocytes % % Monocytes % (Manual) % Eosinophils % % Basophils % % Neutrophils # (1.3-7.7) k/uL Neutrophils # (Manual) (1.3-7.7) k/uL Lymphocytes # (1.0-4.8) k/uL Lymphocytes # (Manual) (1.0-4.8) k/uL Monocytes # (0-1.0) k/uL Monocytes # (Manual) (0-1.0) k/uL Eosinophils # (0-0.7) k/uL Basophils # (0-0.2) k/uL Nucleated RBCs (0-0) /100 WBC Polychromasia Sodium (137-145) mmol/L Potassium (3.5-5.1) mmol/L Chloride (98-107) mmol/L Carbon Dioxide (22-30) mmol/L Anion Gap mmol/L BUN (9-20) mg/dL Creatinine (0.66-1.25) mg/dL Est GFR (CKD-EPI)AfAm (>60 ml/min/1.73 sqM) Est GFR (CKD-EPI)NonAf (>60 ml/min/1.73 sqM) Glucose (74-99) mg/dL POC Glucose (mg/dL) 324 H (75-99) mg/dL POC Glu [facility] ID Ramya Lacy Calcium (8.4-10.2) mg/dL Magnesium (1.6-2.3) mg/dL Total Bilirubin (0.2-1.3) mg/dL AST (17-59) U/L ALT (4-49) U/L Alkaline Phosphatase (38-126) U/L Creatine Kinase (55-170) U/L Troponin I (0.000-0.034) ng/mL Total Protein (6.3-8.2) g/dL Albumin (3.5-5.0) g/dL Urine Color Urine Appearance (Clear) Urine pH (5.0-8.0) Ur Specific [place] (1.001-1.035) Urine Protein (Negative) Urine Glucose (UA) (Negative) Urine Ketones (Negative) Urine Blood (Negative) Urine Nitrite (Negative) Urine Bilirubin (Negative) Urine Urobilinogen (<2.0) mg/dL Ur Leukocyte Esterase (Negative) Urine Opiates Screen (NotDetected) Ur Oxycodone Screen (NotDetected) Urine Methadone Screen (NotDetected) Ur Propoxyphene Screen (NotDetected) Ur Barbiturates Screen (NotDetected) U Tricyclic Antidepress (NotDetected) Ur Phencyclidine Scrn (NotDetected) Ur Amphetamines Screen (NotDetected) U Methamphetamines Scrn (NotDetected) U Benzodiazepines Scrn (NotDetected) Urine Cocaine Screen (NotDetected) U Marijuana (THC) Screen (NotDetected) Coronavirus (PCR) (Not Detectd) - EKG Data -: EKG Interpreted by Me EKG shows normal: sinus rhythm EKG Comments: EKG done shows a normal sinus rhythm of 72. Interval 156 QRS 94 QT/[place] [address] evidence of possible lateral infarct of undetermined age is compared to one dated 06/19/20. Disposition Clinical Impression: Depression, Suicidal ideation Disposition: TRANSFER TO PSYCH HOSP/UNIT Referrals: None,Stated [Primary Care Provider] - 1-2 days
[2020-06-25 15:20] LABS: ALT 28 U/L (4-49); AST 27 U/L (17-59); African American GFR (CKD) >90 (>60 ml/min/1.73 sqM); Albumin 3.9 g/dL (3.5-5.0); Alkaline Phosphatase 76 U/L (38-126); Anion Gap 8 mmol/L; Blood Urea Nitrogen 15 mg/dL (9-20); Calcium 9.5 mg/dL (8.4-10.2); Carbon Dioxide 27 mmol/L (22-30); Chloride 100 mmol/L (98-107); Creatine Kinase 26 U/L (55-170); Glucose 296 mg/dL (74-99); Non-African American GFR(CKD) >90 (>60 ml/min/1.73 sqM); Potassium 4.4 mmol/L (3.5-5.1); Sodium 135 mmol/L (137-145); Total Bilirubin 0.6 mg/dL (0.2-1.3); Total Protein 6.8 g/dL (6.3-8.2)
[2020-06-25 15:36] LABS: HCT 44.9 % (39.0-53.0); HGB 14.7 gm/dL (13.0-17.5); MCH 27.6 pg (25.0-35.0); MCHC 32.7 g/dL (31.0-37.0); MCV 84.5 fL (80.0-100.0); Mean Platelet Volume 8.4; Platelet Count 310 k/uL (150-450); RBC 5.31 m/uL (4.30-5.90); RDW 13.3 % (11.5-15.5); WBC 5.2 k/uL (3.8-10.6)
[2020-06-25 15:54] LABS: Monocytes # (M) 0.16 k/uL (0-1.0); Neutrophils # (M) 3.85 k/uL (1.3-7.7); Neutrophils % (M) 74 %; Nucleated Red Blood Cells 0 /100 WBC (0-0); Polychromasia Present; Total Cells Counted 100
[2020-06-25 16:25] LABS: Glucose,Whole Blood 324 mg/dL (75-99)
[2020-06-25] MEDS ORDERED: LORazepam 1 MG TAB PO STA (16:33)
[2020-06-25] MEDS ORDERED: LEVOFLOXACIN 750MG-D5W PMX 750 MG in DEXTROSE/WATER 1 150ML.BAG IVPB STA (16:48)
[2020-06-25] MEDS: IBUPROFEN 600 MG TAB PO PRN (17:39)
[2020-06-25 21:05] LABS: Glucose,Whole Blood 267 mg/dL (75-99)
[2020-06-25] MEDS: INSULIN DETEMIR (LEVEMIR) 100 UNIT/ML SYR SQ SCH (21:15)
[2020-06-25] MEDS: ARIPiprazole 15 MG TAB PO SCH (21:37)
[2020-06-25] MEDS: MELATONIN 1 MG TAB PO PRN (23:25)
[2020-06-26] MEDS: INSULIN ASPART (NovoLOG) 100 UNIT/ML VIAL SQ SCH ×4 (07:44→21:41)
[2020-06-26 07:47] LABS: Glucose,Whole Blood 278 mg/dL (75-99)
[2020-06-26 12:36] LABS: Glucose,Whole Blood 299 mg/dL (75-99)
[2020-06-26] MEDS: APIXABAN 5 MG TAB PO SCH ×2 (12:41→21:39)
[2020-06-26] MEDS: IBUPROFEN 600 MG TAB PO PRN (15:44)
[2020-06-26 17:25] LABS: Glucose,Whole Blood 329 mg/dL (75-99)
[2020-06-26] MEDS ORDERED: KETOROLAC 15 MG/ML 1 ML VIAL IM STA (18:07)
[2020-06-26 19:43] VITALS: TEMP 96.8
[2020-06-26 21:31] LABS: Glucose,Whole Blood 293 mg/dL (75-99)
[2020-06-26] MEDS: ARIPiprazole 15 MG TAB PO SCH (21:39)
[2020-06-26] MEDS: INSULIN DETEMIR (LEVEMIR) 100 UNIT/ML SYR SQ SCH (21:41)
[2020-06-26] MEDS: MELATONIN 1 MG TAB PO PRN (23:11)
[2020-06-27 02:22] VITALS: BP 144/82; PULSE 78; RESP 16
== END 2020-06-27 02:22 ==
LOC: EC 01:09
DX: F32.9 Major depressive disorder, single episode, unspecified (principal); R45.851 Suicidal ideations; E11.9 Type 2 diabetes mellitus without complications; F17.200 Nicotine dependence, unspecified, uncomplicated; Z79.01 Long term (current) use of anticoagulants; Z79.4 Long term (current) use of insulin; Z79.899 Other long term (current) drug therapy
CPT/HCPCS: 82075; 36415 ×2; 94640; 80053; 85025; 81003; 80306; 99285; 96374; 96375; 96361 ×4; 96372; J2405; J1885 ×2

== ENCOUNTER 2020-06-28 07:12 | Emergency (ER) | payer OTHER, MEDICARE ==
[2020-06-28 07:25] VITALS: RESP 18; TEMP 97.4
[2020-06-28] MEDS ORDERED: IBUPROFEN 600 MG TAB PO STA (08:15)
--- NOTE | 2020-06-28 08:21 | ED ---
General Adult HPI - General Chief complaint: Psychiatric Symptoms Stated complaint: Mental Health Time Seen by Provider: 06/28/20 07:45 Source: patient, RN notes reviewed Mode of arrival: ambulatory Limitations: no limitations - History of Present Illness Initial comments: Patient is a pleasant 44-year-old male presenting to the emergency Department with complaints of depression and suicidal thoughts. Symptoms have progressively worsened over the past several weeks. Patient does have a history of bipolar and posterior neck stress disorder. Patient has been off his medications the past month. Several stressors. Patient does have plan for suicide. No alcohol or street drug use. Patient also does complain of some left knee discomfort. Patient states this is occur while riding his bike frequently recently. No other physical complaints. - Related Data Home Medications Medication Instructions Recorded Confirmed ARIPiprazole [Abilify] 15 mg PO DAILY 06/19/20 06/28/20 Apixaban [Eliquis] 5 mg PO BID 06/19/20 06/28/20 INSULIN LISPRO (HumaLOG) [humaLOG] See Protocol SQ AC-TID 06/19/20 06/28/20 Insulin Glargine [Lantus] 30 unit SQ HS 06/19/20 06/28/20 Nitroglycerin Sl Tabs [Nitrostat] 0.4 mg SUBLINGUAL Q5M PRN 06/19/20 06/28/20 metFORMIN HCL 1,000 mg PO BID 06/19/20 06/28/20 Allergies Allergy/AdvReac Type Severity Reaction Status Date / Time No Known Allergies Allergy Verified 06/28/20 09:42 Review of Systems ROS Statement: Those systems with pertinent positive or pertinent negative responses have been documented in the HPI. ROS Other: All systems not noted in ROS Statement are negative. Constitutional: Denies: fever Eyes: Denies: eye pain ENT: Denies: ear pain Respiratory: Denies: cough Cardiovascular: Denies: chest pain Endocrine: Denies: fatigue Gastrointestinal: Denies: abdominal pain Musculoskeletal: Reports: as per HPI. Denies: back pain Skin: Denies: rash Past Medical History Past Medical History: Diabetes Mellitus Additional Past Medical History / Comment(s): hypertrophic History of Any Multi-Drug Resistant Organisms: None Reported Past Surgical History: Cholecystectomy, Tonsillectomy Additional Past Surgical History / Comment(s): pacemaker defibrillator, Past Psychological History: Bipolar, PTSD Smoking Status: Current every day smoker Past Alcohol Use History: None Reported Past Drug Use History: None Reported General Exam Limitations: no limitations General appearance: alert, in no apparent distress Head exam: Present: normocephalic Eye exam: Present: normal appearance Neck exam: Present: normal inspection Respiratory exam: Present: normal lung sounds bilaterally Cardiovascular Exam: Present: regular rate, normal rhythm GI/Abdominal exam: Present: soft. Absent: tenderness Extremities exam: Present: other (Mild swelling left anterior knee with minimal tenderness. Distally the extremity is neurovascularly intact.) Neurological exam: Present: alert. Absent: motor sensory deficit Psychiatric exam: Present: depressed Skin exam: Present: normal color Course Vital Signs 06/28/20 07:20 Temperature 97.4 F L Pulse Rate 95 Respiratory 18 Rate Blood Pressure 128/89 O2 Sat by Pulse 100 Oximetry Medical Decision Making - Medical Decision Making Patient seen by mental health services with plan for safety. Not suicidal. Patient discharged to skilled nursing - Lab Data Lab Results 06/28/20 Range/Units 08:45 Urine Opiates Screen Not Detected (NotDetected) Ur Oxycodone Screen Not Detected (NotDetected) Urine Methadone Screen Not Detected (NotDetected) Ur Propoxyphene Screen Not Detected (NotDetected) Ur Barbiturates Screen Not Detected (NotDetected) U Tricyclic Antidepress Not Detected (NotDetected) Ur Phencyclidine Scrn Not Detected (NotDetected) Ur Amphetamines Screen Not Detected (NotDetected) U Methamphetamines Scrn Not Detected (NotDetected) U Benzodiazepines Scrn Detected H (NotDetected) Urine Cocaine Screen Not Detected (NotDetected) U Marijuana (THC) Screen Not Detected (NotDetected) - Radiology Data Radiology results: image reviewed ((The x-ray questions soft density which could be retained foreign body. Small knee joint effusion.) Disposition Clinical Impression: Depression Disposition: HOME SELF-CARE Condition: Stable Instructions (If sedation given, give patient instructions): Depression (ED) Additional Instructions: Please do follow-up with mental health services as directed. Please take your medications as directed. Return for thoughts of self-harm, worsening symptoms or other concerns. Please also follow-up to primary care physician in the next day or 2 for recheck. Is patient prescribed a controlled substance at d/c from ED?: No Referrals: Ortega Khalil MD [STAFF PHYSICIAN] - 1-2 days Time of Disposition: 10:42
--- NOTE | 2020-06-28 09:12 | XR ---
EXAMINATION TYPE: XR knee complete LT DATE OF EXAM: 06/28/2020 COMPARISON: None HISTORY: 44-year-old male pain and swelling. TECHNIQUE: 3 views FINDINGS: Small knee joint effusion. Some anterior soft tissue swelling. No acute fracture, subluxation, or dis location. Tiny 2 mm density in the infrapatellar subcutaneous soft tissues at the level of the proxim al patellar tendon. IMPRESSION: 1. Tiny 2 mm density on the lateral view located in the infrapatellar subcutaneous soft tissues at th e level of the proximal patellar tendon. Correlate to exclude possibility of a tiny retained foreign body. 2. Anterior soft tissue swelling. 3. Small knee joint effusion. 4. No acute osseous abnormality seen.
[2020-06-28 09:15] LABS: Amphetamine Screen,Urine Not Detected (NotDetected); Barbiturate Screen,Urine Not Detected (NotDetected); Benzodiazepines Screen,Urine Detected (NotDetected); Cocaine Screen,Urine Not Detected (NotDetected); Methadone Screen, Urine Not Detected (NotDetected); Opiate Screen,Urine Not Detected (NotDetected); Oxycodone Screen, Urine Not Detected (NotDetected); Phencyclidine Screen,Urine Not Detected (NotDetected); Tricyclic Antidepressant,Urine Not Detected (NotDetected); Urn Cannabinoid Scrn Not Detected (NotDetected)
[2020-06-28 10:53] VITALS: BP 152/94; PULSE 86
[2020-06-28] MEDS ORDERED: ACETAMINOPHEN TAB 500 MG TAB PO STA (10:53)
== END 2020-06-28 10:56 | disposition home or self-care (01) ==
LOC: EC 07:12
DX: F32.9 Major depressive disorder, single episode, unspecified (principal); E11.9 Type 2 diabetes mellitus without complications; F17.200 Nicotine dependence, unspecified, uncomplicated; Z79.4 Long term (current) use of insulin
CPT/HCPCS: 80306; 82075; 99285